=== PATIENT | female | born 1955 | race Caucasian/White ===

== ENCOUNTER → 2017-09-20 | Outpatient (CLI) | payer BC ==
[~2017-09-20] MED LIST: AGM875T PO; HYDR1TAB PO
--- NOTE | 2017-09-20 19:32 | Diagnostic Imaging Report ---
EXAMINATION: Parathyroid nuclear medicine study. INDICATION: Parathyroid adenoma. TECHNIQUE: This study was performed following administration of 20.2 mCi of 99m-technetium sestamibi. AP image of the neck was performed. Sagittal, coronal, and axial reconstructed images were also performed. COMPARISON: There are no prior studies available for comparison. FINDINGS: On the 20-minute exam, there is uptake within the parotid and submandibular glands symmetrically and in the thyroid gland. On the delayed image, there is no persistent abnormal uptake to suggest a parathyroid adenoma. IMPRESSION: 1. There is no evidence for a parathyroid adenoma. 2. If clinical concern regarding a parathyroid adenoma persists and further imaging is desired, then MRI should be considered. Dictated by: Dictated on workstation # [id number]
== END ==
LOC: CARD 12:05
PROVIDERS: ATTEND Family Medicine
DX: E21.0 Primary hyperparathyroidism (principal)
CPT/HCPCS: 78072

== ENCOUNTER → 2017-10-20 | Outpatient (CLI) | payer BC ==
--- NOTE | 2017-10-20 11:33 | Diagnostic Imaging Report ---
PROCEDURE: MRI right upper extremity without contrast. TECHNIQUE: Multiplanar, multisequence non contrast-enhanced MRI of the upper extremity was accomplished. INDICATION: Fall 06/17/2017 with injury to the right hand. Pain at the right fifth digit, lateral side, with limited range of motion. COMPARISON: None FINDINGS: Small subcortical cystlike changes are seen in the second and third metacarpal heads, likely from degenerative change. Mild edema is seen in the fifth proximal phalangeal head and middle phalangeal base. No acute fracture is seen in the right hand. There is soft tissue edema at the ulnar aspect of the right fifth proximal interphalangeal joint, with mild associated fluid. There is a high-grade partial or full-thickness tear at the proximal attachment of the ulnar collateral ligament at this joint. The ligament is thickened, likely from chronic injury. The radial collateral ligament appears intact. The distal interphalangeal joint is unremarkable. There is minimal fluid in the flexor tendon sheath, however the flexor tendon appears intact. The extensor tendon is unremarkable. The imaged musculature is likewise unremarkable. No drainable fluid collections are seen. IMPRESSION: 1. Thickening of the ulnar collateral ligament of the right fifth finger proximal interphalangeal joint, with high-grade partial-thickness or full-thickness tear at the proximal attachment. There is mild adjacent soft tissue and bone marrow edema. No acute fracture is seen. 2. Mild flexor tenosynovitis in the right fifth finger. 3. Mild degenerative changes in the right hand. Dictated by: Dictated on workstation # [id number]
== END ==
LOC: RAD 09:08
DX: S63.696A Other sprain of right little finger, initial encounter (principal); M24.241 Disorder of ligament, right hand; M65.841 Other synovitis and tenosynovitis, right hand; M19.041 Primary osteoarthritis, right hand
CPT/HCPCS: 73218

== ENCOUNTER → 2017-11-04 | Outpatient (CLI) | payer BC ==
--- NOTE | 2017-11-04 11:38 | Diagnostic Imaging Report ---
Indication: Evaluate for osteoporosis. Procedure: Bone mineral density of the lumbar spine and both hips was performed. Findings: The bone mineral density of the lumbar spine at L2-L4 is 0.962 with a T score of -2.0. The bone mineral density of the left femoral neck is 0.800 with T score -1.7. Bone mineral density of the right femoral neck is 0.758 with T score of -2.0. Impression: Findings consistent with osteopenia of the lumbar spine and bilateral femoral necks. Dictated by: Dictated on workstation # [id number]
== END ==
LOC: RAD 10:04
PROVIDERS: ATTEND Family Medicine
DX: M81.0 Age-related osteoporosis without current pathological fracture (principal); M85.88 Other specified disorders of bone density and structure, other site
CPT/HCPCS: 77080

== ENCOUNTER 2018-05-10 10:09 | Outpatient (RCR) | payer BC ==
[2018-06-02] MEDS ORDERED: LEVO50TA6 PO (10:06)
[2018-06-06] MEDS ORDERED: ACHD5005 PO (09:14)
[2018-06-06] MEDS ORDERED: CEPH500C PO (09:14)
== END 2018-08-08 | disposition home or self-care (01) ==
LOC: CARD 10:09
PROVIDERS: ATTEND Family Medicine
DX: R00.2 Palpitations (principal)
CPT/HCPCS: 93225; 93226

== ENCOUNTER → 2018-05-31 | Outpatient (CLI) | payer BC ==
[~2018-05-31] MED LIST changes: +ACHD5005 PO; +CEPH500C PO; +LEVO50TA6 PO
[2018-05-31 14:17] LABS: BASOPHILS % (AUTO) 1 % (0-10); EOSINOPHILS # (AUTO) 0.1 10^3/uL (0.0-0.3); EOSINOPHILS % (AUTO) 1 % (0-10); HEMATOCRIT 41 % (35-52); HEMOGLOBIN 13.7 G/DL (11.5-16.0); LYMPHOCYTES # (AUTO) 1.9 X 10^3 (1.0-4.0); LYMPHOCYTES % (AUTO) 32 % (12-44); MEAN CORPUSCULAR HEMOGLOBIN 31 PG (25-34); MEAN CORPUSCULAR HGB CONC 34 G/DL (32-36); MEAN CORPUSCULAR VOLUME 92 FL (80-99); MEAN PLATELET VOLUME 9.5 FL (7.4-10.4); MONOCYTES # (AUTO) 0.4 X 10^3 (0.0-1.0); MONOCYTES % (AUTO) 7 % (0-12); NEUTROPHILS # (AUTO) 3.5 X 10^3 (1.8-7.8); NEUTROPHILS % (AUTO) 59 % (42-75); PLATELET COUNT 285 10^3/uL (130-400); RED BLOOD COUNT 4.46 10^6/uL (4.35-5.85); RED CELL DISTRIBUTION WIDTH 13.4 % (10.0-14.5)
[2018-05-31 14:35] LABS: ALANINE AMINOTRANSFERASE 19 U/L (0-55); ALBUMIN 4.6 GM/DL (3.2-4.5); ALKALINE PHOSPHATASE 64 U/L (40-136); BILIRUBIN,TOTAL 1.3 MG/DL (0.1-1.0); BUN/CREATININE RATIO 22; CALCIUM 9.6 MG/DL (8.5-10.1); CARBON DIOXIDE 23 MMOL/L (21-32); CHLORIDE 104 MMOL/L (98-107); CREATININE SERUM 0.89 MG/DL (0.60-1.30); GFR ESTIMATED > 60; GLUCOSE 96 MG/DL (70-105); MAGNESIUM 2.2 MG/DL (1.8-2.4); POTASSIUM 4.2 MMOL/L (3.6-5.0); SODIUM 140 MMOL/L (135-145); TOTAL PROTEIN 7.5 GM/DL (6.4-8.2)
== END ==
LOC: LAB 14:00
PROVIDERS: ATTEND Family Medicine
DX: Z01.812 Encounter for preprocedural laboratory examination (principal); R00.2 Palpitations; E55.9 Vitamin D deficiency, unspecified; E83.42 Hypomagnesemia; E83.52 Hypercalcemia
CPT/HCPCS: 36415; 80053; 82306; 83735; 85025

== ENCOUNTER 2018-06-02 09:51 | Outpatient (CLI) | payer BC ==
[~2018-06-02] VITALS: Ht 162.6 cm; Wt 68.9 kg
[~2018-06-02 09:51] MED LIST changes: -ACHD5005 PO; -CEPH500C PO; -LEVO50TA6 PO
[2018-06-02] MEDS ORDERED: LEVO50TA6 PO (10:06)
[2018-06-02 10:25] VITALS: BP 126/79
[2018-06-06] MEDS ORDERED: ACHD5005 PO (09:14)
[2018-06-06] MEDS ORDERED: CEPH500C PO (09:14)
== END 2018-06-02 10:15 | disposition home or self-care (01) ==
LOC: PREOP 09:51
PROVIDERS: ATTEND Podiatrist Foot & Ankle Surgery
DX: Z01.818 Encounter for other preprocedural examination (principal)
CPT/HCPCS: 87081

== ENCOUNTER 2018-06-06 06:15 | Day surgery (SDC) | payer BC ==
[~2018-06-06] VITALS: Ht 162.6 cm; Wt 68.9 kg
[~2018-06-06 06:15] MED LIST changes: +LEVO50TA6 PO
[2018-06-06 06:30] VITALS: BP 119/84
[2018-06-06] MEDS ORDERED: NS (IVPB) 50 ML ONE (06:34)
[2018-06-06] MEDS ORDERED: ceFAZolin 1,000 MG/10 ML (ANCEF) VIAL ONE (06:34)
[2018-06-06] MEDS ORDERED: ceFAZolin INJECTION 1,000 MG in NS (IVPB) 50 ML IV ONE (06:45)
[2018-06-06] MEDS: LACTATED RINGERS 1,000 ML IV PRN ×2 (06:53→08:25)
[2018-06-06] MEDS ORDERED: fentaNYL INJECTION 100 MCG/2 ML AMP ONE (06:58)
[2018-06-06] MEDS ORDERED: MIDAZOLAM 2 MG/2 ML (VERSED) VIAL ONE (06:59)
--- OUTSIDE RECORDS SUMMARY | 2018-06-06 07:18 | XMS REPORT | Continuity of Care Document ---
Author Author [facility] Organization [facility] Address Unknown Phone Unavailable Allergies Active Description Code Type Severity Reaction Onset Reported/Identified Relationship to Patient Clinical Status Yes NKDA NKDA Mild N/ A 04/04/2009 Yes Sulfa (Sulfonamide Antibiotics) [id number] Drug Allergy Mild N/A 2008 Medications There is no data. Problems Date Dx Coded Attending Type Code Diagnosis Diagnosed By 08/24/2014 STEVE MONROY DO Ot V76.12 12/28/2015 STEVE MONROY DO Ot Z12.31 ENCNTR SCREEN MAMMOGRAM FOR MALIGNANT NE 01/16/2016 STEVE MONROY DO Ot Z12.31 ENCNTR SCREEN MAMMOGRAM FOR MALIGNANT NE 04/07/2016 Ot 611.79 SYMPTOMS IN BREAST NEC 04/07/2016 STEVE MONROY DO Ot V76.12 OTH SCREEN MAMMO-MALIGN NEOPLASM OF MARION 04/07/2016 Ot 611.79 SYMPTOMS IN BREAST NEC 04/07/2016 STEVE MONROY DO Ot V76.12 OTH SCREEN MAMMO-MALIGN NEOPLASM OF MARION 01/01/2017 STEVE MONROY DO Ot V76.12 OTH SCREEN MAMMO-MALIGN NEOPLASM OF MARION 09/17/2017 STEVE MONROY DO Ot Z12.31 ENCNTR SCREEN MAMMOGRAM FOR MALIGNANT NE 09/21/2017 STEVE MONROY DO Ot E21.0 PRIMARY HYPERPARATHYROIDISM 10/08/2017 STEVE MONROY DO Ot E21.0 PRIMARY HYPERPARATHYROIDISM 10/19/2017 STEVE MONROY DO Ot Z12.31 ENCNTR SCREEN MAMMOGRAM FOR MALIGNANT NE 10/19/2017 STEVE MONROY DO Ot E21.0 PRIMARY HYPERPARATHYROIDISM 10/21/2017 OTHER, UNLISTED Ot M19.041 PRIMARY OSTEOARTHRITIS, RIGHT HAND 10/21/2017 OTHER, UNLISTED Ot M24.241 DISORDER OF LIGAMENT, RIGHT HAND 10/21/2017 OTHER, UNLISTED Ot M65.841 OTHER SYNOVITIS AND TENOSYNOVITIS, RIGHT 10/21/2017 OTHER, UNLISTED Ot S63.696A OTHER SPRAIN OF RIGHT LITTLE FINGER, INI 11/03/2017 STEVE MONROY DO Ot V76.12 OTH SCREEN MAMMO-MALIGN NEOPLASM OF [place] 11/04/2017 STEVE MONROY DO Ot Z12.31 ENCNTR SCREEN MAMMOGRAM FOR MALIGNANT NE 11/04/2017 STEVE MONROY DO Ot E21.0 PRIMARY HYPERPARATHYROIDISM 11/05/2017 PORFIRIO LOZOYA STEVE Tung Ot M81.0 AGE-RELATED OSTEOPOROSIS W/O CURRENT PAT 11/05/2017 STEVE MONROY DO Ot M85.88 OTH DISRD OF BONE DENSITY AND STRUCTURE, 11/05/2017 OTHER, UNLISTED Ot M19.041 PRIMARY OSTEOARTHRITIS, RIGHT HAND 11/05/2017 OTHER, UNLISTED Ot M24.241 DISORDER OF LIGAMENT, RIGHT HAND 11/05/2017 OTHER, UNLISTED Ot M65.841 OTHER SYNOVITIS AND TENOSYNOVITIS, RIGHT 11/05/2017 OTHER, UNLISTED Ot S63.696A OTHER SPRAIN OF RIGHT LITTLE FINGER, INI 11/17/2017 STEVE MONROY DO Ot M81.0 AGE-RELATED OSTEOPOROSIS W/O CURRENT PAT 11/17/2017 PORFIRIO LOZOYA STEVE Tung Ot M85.88 OTH DISRD OF BONE DENSITY AND STRUCTURE, 05/31/2018 PORFIRIO LOZOYA STEVE Ruby Ot Z12.31 ENCNTR SCREEN MAMMOGRAM FOR MALIGNANT NE 05/31/2018 PORFIRIO LOZOYA STEVE Tung Ot E21.0 PRIMARY HYPERPARATHYROIDISM 05/31/2018 PORFIRIO LOZOYA STEVE S Ot M81.0 AGE-RELATED OSTEOPOROSIS W/O CURRENT PAT 05/31/2018 PORFIRIO LOZOYA STEVE S Ot M85.88 OTH DISRD OF BONE DENSITY AND STRUCTURE, 05/31/2018 PORFIRIO LOZOYA STEVE Tung Ot R00.2 PALPITATIONS 06/01/2018 PORFIRIO LOZOYA STEVE Tung Ot E55.9 VITAMIN D DEFICIENCY, UNSPECIFIED 06/01/2018 STEVE MONROY DO Ot E83.42 HYPOMAGNESEMIA 06/01/2018 STEVE MONROY DO Ot E83.52 HYPERCALCEMIA 06/01/2018 STEVE MONROY DO Ot R00.2 PALPITATIONS 06/01/2018 STEVE MONROY DO Ot Z01.812 ENCOUNTER FOR PREPROCEDURAL LABORATORY E Procedures There is no data. Results Test Result Range Complete blood count (CBC) with automated white blood cell (WBC) differential - 05/31/18 14:05 Blood leukocytes automated count (number/volume) 6.0 10*3/uL 4.3-11.0 Blood erythrocytes automated count (number/volume) 4.46 10*6/uL 4.35-5.85 Venous blood hemoglobin measurement (mass/volume) 13.7 g/dL 11.5-16.0 Blood hematocrit (volume fraction) 41 % 35-52 Automated erythrocyte mean corpuscular volume 92 [foz_us] 80-99 Automated erythrocyte mean corpuscular hemoglobin (mass per erythrocyte) 31 pg 25-34 Automated erythrocyte mean corpuscular hemoglobin concentration measurement ( mass/volume) 34 g/dL 32-36 Automated erythrocyte distribution width ratio 13.4 % 10.0-14.5 Automated blood platelet count (count/volume) 285 10*3/uL 130-400 Automated blood platelet mean volume measurement 9.5 [foz_us] 7.4-10.4 Automated blood neutrophils/100 leukocytes 59 % 42-75 Automated blood lymphocytes/100 leukocytes 32 % 12-44 Blood monocytes/100 leukocytes 7 % 0-12 Automated blood eosinophils/100 leukocytes 1 % 0-10 Automated blood basophils/100 leukocytes 1 % 0-10 Blood neutrophils automated count (number/volume) 3.5 10*3 1.8-7.8 Blood lymphocytes automated count (number/volume) 1.9 10*3 1.0-4.0 Blood monocytes automated count (number/volume) 0.4 10*3 0.0-1.0 Automated eosinophil count 0.1 10*3/uL 0.0-0.3 Automated blood basophil count (count/volume) 0.0 10*3/uL 0.0-0.1 Comprehensive metabolic panel - 05/31/18 14:05 Serum or plasma sodium measurement (moles/volume) 140 mmol/L 135-145 Serum or plasma potassium measurement (moles/volume) 4.2 mmol/L 3.6-5.0 Serum or plasma chloride measurement (moles/volume) 104 mmol/L 98-107 Carbon dioxide 23 mmol/L 21-32 Serum or plasma anion gap determination (moles/volume) 13 mmol/L 5-14 Serum or plasma urea nitrogen measurement (mass/volume) 20 mg/dL 7-18 Serum or plasma creatinine measurement (mass/volume) 0.89 mg/dL 0.60-1.30 Serum or plasma urea nitrogen/creatinine mass ratio 22 NRG Serum or plasma creatinine measurement with calculation of estimated glomerular filtration rate > NRG Serum or plasma glucose measurement (mass/volume) 96 mg/dL 70-105 Serum or plasma calcium measurement (mass/volume) 9.6 mg/dL 8.5-10.1 Serum or plasma total bilirubin measurement (mass/volume) 1.3 mg/dL 0.1-1.0 Serum or plasma alkaline phosphatase measurement (enzymatic activity/volume) 64 U/L 40-136 Serum or plasma aspartate aminotransferase measurement (enzymatic activity/ volume) 25 U/L 5-34 Serum or plasma alanine aminotransferase measurement (enzymatic activity/volume ) 19 U/L 0-55 Serum or plasma protein measurement (mass/volume) 7.5 g/dL 6.4-8.2 Serum or plasma albumin measurement (mass/volume) 4.6 g/dL 3.2-4.5 Magnesium - 05/31/18 14:05 Magnesium 2.2 mg/dL 1.8-2.4 VITAMIN D 25-HYDROXY - 05/31/18 14:05 VITAMIN D 25-HYDROXY (TOTAL) 52.0 % 30.0-100.0 Methicillin resistant Staphylococcus aureus (MRSA) screening culture - 10:10 Methicillin resistant Staphylococcus aureus (MRSA) screening culture NEG NRG Encounters ACCT No. Visit Date/Time Discharge Status Pt. Type Provider Facility Loc./Unit Complaint [id number] 06/02/2018 09:51:00 06/02/2018 10:15:00 DIS Outpatient NUZHAT FORDE DPM [facility] PREOP HALLUX RIGIDUS RIGHT [id number] 05/31/2018 14:00:00 05/31/2018 23:59:59 CLS Outpatient ORENDER DO, STEVE S [facility] LAB PREOP LAB, PALPITATIONS [id number] 05/20/2018 13:38:00 05/20/2018 23:59:59 CLS Preadmit ORENDER DO, STEVE S [facility] CARD PALPITATIONS, TACHYCARDIA [id number] 05/10/2018 10:09:00 05/10/2018 23:59:59 CLS Outpatient ORENDER DO, STEVE S [facility] CARD PALPITATIONS [id number] 11/04/2017 10:04:00 11/04/2017 23:59:59 CLS Outpatient ORENDER DO, STEVE S [facility] RAD M85.89 OTHER SPECIFIED DISORDERS OF BONE DENSITY S [id number] 10/20/2017 09:08:00 10/20/2017 23:59:59 CLS Outpatient OTHER, UNLISTED [facility] RAD RT HAND PAIN [id number] 09/20/2017 12:05:00 09/20/2017 23:59:59 CLS Outpatient ORENDER DO, STEVE S [facility] CARD E21.0 [id number] 12/26/2015 10:30:00 12/26/2015 23:59:59 CLS Outpatient TWILANDER DO, STEVE S [facility] RAD SCREENING [id number] 08/10/2014 10:50:00 08/10/2014 23:59:59 CLS Outpatient ORENDER DO, STEVE S [facility] RAD SCREENING [id number] 02/21/2013 06:08:00 02/21/2013 09:59:00 DIS Emergency [id number] 06/06/2018 06:15:00 ACT Outpatient EULA DPM, NUZHAT Q [facility] SDC HALLUX RIGIDUS RIGHT [id number] 01/14/2011 08:13:00 Document Registration
--- OUTSIDE RECORDS SUMMARY | 2018-06-06 07:18 | XMS REPORT | Clinical Summary ---
Author Author [facility] Organization [facility] Address Unknown Phone Unavailable Care Team Providers Care Valve Lapper Name Role Phone Linette Malagon MD PCP Source Comments Some departments are not documenting in the electronic medical record. If you do not see the information that you expected, contact Release of Information in the Health Information Management department at [phone] for further assistance in locating additional records.[facility] Allergies Active Allergy Reactions Severity Noted Date Comments Sulfa (Sulfonamide ITCHING, REDNESS Medium 11/09/2017 Antibiotics) Current Medications Prescription Sig. Disp. Refills Start End Date Status Date levothyroxine (SYNTHROID) Take 1 tablet by mouth 10/06/19 Active 50 mcg tablet daily. 18 cholecalciferol (VITAMIN Take 2,000 Units by mouth Active D-3) 1,000 units tablet daily. vitamins, B complex tab Take 1 tablet by mouth Active daily. Magnesium 250 mg tab Take 1 tablet by mouth Active daily. Ginkgo Biloba 500 mg cap Take 1 capsule by mouth Active daily. Flaxseed Oil 1,000 mg cap Take 1 capsule by mouth Active daily. oxyCODONE (ROXICODONE, Take 2 tablets by mouth 40 tablet 0 11/27/19 Active OXY-IR) 5 mg tablet every 4 hours as needed 18 Earliest Fill Date: 11/26/17 calcium carbonate Take 1 tablet by mouth 90 tablet 3 11/27/19 Active (OS-WOJCIECH) 1250 mg tablet three times daily. 18 senna (SENOKOT) 8.6 mg Take 1 tablet by mouth 90 tablet 3 11/27/19 Active tablet twice daily. 18 acetaminophen (TYLENOL) Take 2 tablets by mouth 0 11/27/19 Active 325 mg tablet every 6 hours as needed 18 for Pain. Active Problems No known active problems Resolved Problems Problem Noted Date Resolved Date Hyperparathyroidism (HCC) 11/10/2017 12/18/2017 Overview: Added automatically from request for surgery [id number] Family History Medical History Relation Name Comments High Cholesterol Brother Depression Father Stroke Father Thyroid Disease Father Arthritis-osteo Maternal Aunt Hypertension Maternal Aunt Thyroid Disease Maternal Aunt Cancer-Prostate Maternal Grandfather Arthritis-rheumatoid Maternal Uncle Arthritis-osteo Mother High Cholesterol Mother Hypertension Mother Cancer-Breast Paternal Aunt Depression Paternal Aunt Hypertension Paternal Aunt Heart Disease Paternal Grandfather Depression Paternal Grandmother Depression Sister Relation Name Status Comments Brother Alive Father Maternal Aunt Maternal Grandfather Maternal Uncle Mother Paternal Aunt Paternal Aunt Alive Paternal Grandfather Paternal Grandmother Sister Alive Social History Tobacco Use Types Packs/Day Years Used Date Never Smoker Smokeless Tobacco: Never Used Alcohol Use Drinks/Week oz/Week Comments No Sex Assigned at Date Recorded Not on file Last Filed Vital Signs Vital Sign Reading Time Taken Blood Pressure 122/72 12/07/2017 11:22 AM CDT Pulse 70 12/07/2017 11:22 AM CDT Temperature 36.8 C (98.2 F) 12/07/2017 11:22 AM CDT Respiratory Rate 16 12/07/2017 11:22 AM CDT Oxygen Saturation 98% 12/07/2017 11:22 AM CDT Inhaled Oxygen - - Concentration Weight 69.1 kg (152 lb 6.4 oz) 12/07/2017 11:22 AM CDT Height 161.2 cm (5' 3.47") 12/07/2017 11:22 AM CDT Body Mass Index 26.6 12/07/2017 11:22 AM CDT Plan of Treatment Health Maintenance Due Date Last Done Comments HEPATITIS C SCREENING 1954 PHYSICAL (COMPREHENSIVE) 1961 EXAM PERTUSSIS VACCINE 1965 HIV SCREENING 1969 TETANUS VACCINE 1971 CERVICAL CANCER SCREENING 1984 BREAST CANCER SCREENING 1994 COLORECTAL CANCER 2004 SCREENING SHINGLES RECOMBINANT 2004 VACCINE (1 of 2) INFLUENZA VACCINE 02/23/2018 Results Not on filefrom Last 3 Months
--- NOTE | 2018-06-06 07:25 | Progress Note-Pre Operative ---
Pre-Operative Progress Note H&P Reviewed The H&P was reviewed, patient examined and no changes noted. Date Seen by Provider: Jun 06, 2018 Time Seen by Provider: 07:25 Date H&P Reviewed: Jun 06, 2018 Time H&P Reviewed: 07:25 Pre-Operative Diagnosis: Hallux Rigidus right NUZHAT FORDE DPM Jun 06, 2018 7:25 am
[2018-06-06] MEDS ORDERED: BUPIVACAINE 0.5% 30 ML (SENSORCAINE) VIAL ONE (07:27)
[2018-06-06] MEDS ORDERED: DEXAMETHASONE 10 MG/ML (DECADRON) 1 ML VIAL ONE (08:43)
[2018-06-06] MEDS ORDERED: LACTATED RINGERS 1,000 ML IV ONE (08:44)
[2018-06-06] MEDS ORDERED: ONDANSETRON 4 MG/2 ML (SDV) Z0FRAN ONE (08:44)
[2018-06-06] MEDS ORDERED: SEVOFLURANE (ULTANE) 15 ML INHAL SOLN ONE ×5 (08:44→08:45)
[2018-06-06] MEDS ORDERED: LIDOCAINE PF 2% 5 ML (XYLOCAINE) VIAL ONE (08:44)
[2018-06-06] MEDS ORDERED: proPOfol 200 MG/20 ML (DIPRIVAN) VIAL IV ONE (08:44)
[2018-06-06] MEDS ORDERED: KETOROLAC 30 MG/ML VIAL IVP ONE (09:00)
[2018-06-06] MEDS ORDERED: morphine INJ 10 MG/ML 1ML (SYR OR VIAL) IVP ONE (09:00)
[2018-06-06] MEDS ORDERED: ONDANSETRON 4 MG/2 ML (SDV) Z0FRAN IVP PRN (09:00)
[2018-06-06] MEDS ORDERED: MEPERIDINE (DEMEROL) INJ 50 MG/ML IVP ONE (09:00)
[2018-06-06] MEDS ORDERED: fentaNYL INJECTION 100 MCG/2 ML AMP IVP ONE (09:00)
[2018-06-06] MEDS ORDERED: LACTATED RINGERS 1,000 ML IV SCH (09:12)
--- NOTE | 2018-06-06 09:12 | Progress Note-Post Operative ---
Post-Operative Progess Note Surgeon (s)/Ready Mix Truck Driver (s) Surgeon NUZHAT FORDE DPM Ready Mix Truck Driver: none Pre-Operative Diagnosis Hallux Rigidus right Post-Operative Diagnosis same Procedure & Operative Findings Date of Procedure 06/06/18 Procedure Performed/Findings Cheilectomy with Cartiva implant, right foot Anesthesia Type General Estimated Blood Loss Estimated blood loss (mL): minimal Specimens/Packing Specimens Removed none NUZHAT FORDE DPM Jun 06, 2018 9:12 am
[2018-06-06] MEDS ORDERED: ACHD5005 PO (09:14)
[2018-06-06] MEDS ORDERED: CEPH500C PO (09:14)
[2018-06-06] MEDS ORDERED: HYDROcodone/APAP 5 MG/325 MG (LORTAB) TAB PO PRN (09:15)
--- NOTE | 2018-06-06 09:50 | Diagnostic Imaging Report ---
INDICATION: Right foot pain. Two views of the right foot show no fracture or dislocation. IMPRESSION: Negative right foot. Dictated by: Dictated on workstation # [id number]
[2018-06-06 09:55] VITALS: BP 134/77
[2018-06-06 10:25] VITALS: BP 134/76
--- NOTE | 2018-06-06 10:35 | Anesthesia-General Post-Op ---
General Patient Condition Mental Status/LOC: Same as Preop Cardiovascular: Satisfactory Nausea/Vomiting: Absent Respiratory: Satisfactory Pain: Controlled Complications: Absent Post Op Complications Complications None Follow Up Care/Instructions Patient Instructions None needed. Anesthesia/Patient Condition Patient Condition Patient is doing well, no complaints, stable vital signs, no apparent adverse anesthesia problems. No complications reported per nursing. GILBERTO YOON CRNA Jun 06, 2018 10:35
[2018-06-06 10:50] VITALS: BP 134/76
[2018-06-06 10:55] VITALS: BP 128/78
--- NOTE | 2018-06-06 11:44 | Physical Therapy Progress Note ---
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 Education with patient on PWB right foot. Patient ambulated to restroom PWB right foot with FWW without difficulty. No skilled PT indicated. 1 visit MUKESH BHAGAT PT Jun 06, 2018 11:44
--- NOTE | 2018-06-06 15:22 | OPERATIVE REPORT ---
DATE OF SERVICE: 06/06/2018 SURGEON: Deonna Rios DPM. PREOPERATIVE DIAGNOSIS: Hallux rigidus, right. POSTOPERATIVE DIAGNOSIS: Hallux rigidus, right. PROCEDURE: Cheilectomy with a Cartiva implant. WOUND CLASS: Clean. ANESTHESIA: General. HEMOSTASIS: Pneumatic thigh tourniquet at 250 mmHg. INDICATIONS: This is a 63-year-old female presents complaining of painful right great toe joint. Conservative therapy has met with unsatisfactory results and the patient is agreeable to surgical intervention after risks and complications were discussed at length. No guarantees were extended to the patient and she is willing to proceed. DESCRIPTION OF PROCEDURE: The patient was brought back to the operating table and placed in secure supine position. General anesthetic was then induced. An appropriate timeout was performed. A pneumatic thigh tourniquet was placed on the right lower extremity over several layers of padding. The right foot was then prepped and draped in the normal sterile manner. The right first ray was anesthetized utilizing of 10 mL of 0.5% Marcaine plain injected in a Rothman block. The right foot was then elevated and allowed to exsanguinate after which the tourniquet was inflated to 250 mmHg. Attention was then directed to the dorsal aspect of the right first metatarsophalangeal joint where a 6 cm longitudinal linear incision was created. The incision was deepened in the same plane with great care to identify and retract all vital neurovascular structures. All necessary blood vessels were cauterized as encountered. The incision was deepened down to the capsule where a longitudinal capsulotomy was performed and reflected medial and laterally exposing the hypertrophic medial, lateral and dorsal aspect of the first metatarsal and base of the proximal phalanx. Utilizing power sagittal saw and rongeur, these bony prominences were reduced significantly. The head of the first metatarsal was further contoured and smoothed with a power bur. Inspection of the first metatarsal head indicated approximately 10% of the articular cartilage remaining to the plantar medial aspect of the first metatarsal. Because of this lack of hyaline cartilage, it was then decided that a Cartiva implant would be appropriate for this particular patient. The wound was flushed with copious amounts of normal saline. A guidewire was placed through the central portion of the first metatarsal head and extended proximally. Next, an 8 mm drill was introduced over the guidewire, making a deficit for the implant to the first metatarsal head. The drill and guidewire were then removed from the first metatarsal after which the 8 mm Cartiva implant was introduced to the first metatarsal head approximately 2 mm proud in relation to the first metatarsal head surface. The wound was flushed with copious amounts of normal saline and closure was then performed in layers. Deep closure was performed with 3-0 Vicryl, superficial with 4-0 Vicryl, skin closed with 4-0 Prolene in a horizontal mattress type stitch. Excellent range of motion was appreciated at the right first metatarsophalangeal joint with minimal crepitation. Postoperative injection consisted of 10 mL of 0.5% Marcaine plain in a Rothman block as well as 10 mg dexamethasone in the first intermetatarsal space at the level of the first metatarsophalangeal joint. Postoperative dressing consisted of Betadine soaked Adaptic, sterile 4 x 4, sterile Kerlix, all secured with a Coban wrap. The patient tolerated the anesthesia and procedure well, was transported from the operating room to the recovery area with vital signs stable and vascular status intact to all digits of the right foot. The patient is to follow up in my office in 10 days' period of time or sooner if necessary. She was given a prescription for Keflex and Vicodin. Job ID: [id number] DocumentID: [id number] Dictated Date: 06/06/2018 09:38:57 Auto Motor Mechanic Date: 06/06/2018 15:21:56 Dictated By: MANDO ZAMORANO
== END 2018-06-06 11:20 | disposition home or self-care (01) ==
LOC: SDC 06:15
PROVIDERS: ATTEND Podiatrist Foot & Ankle Surgery
DX: M20.21 Hallux rigidus, right foot (principal); R00.2 Palpitations; Z79.899 Other long term (current) drug therapy
CPT/HCPCS: 73620

== ENCOUNTER → 2018-10-20 | Outpatient (CLI) | payer BC ==
[~2018-10-20] MED LIST changes: +ACHD5005 PO; +CEPH500C PO
== END ==
LOC: CARD 14:57
PROVIDERS: ATTEND Family Medicine
DX: R00.2 Palpitations (principal)
CPT/HCPCS: 93005

== ENCOUNTER → 2018-11-10 | Outpatient (CLI) | payer BC ==
[2018-11-13 15:39] VITALS: BP 161/106
--- NOTE | 2018-11-13 15:39 | Cardiology Stress Test Report ---
Stress Test Report Date of Procedure/Referring: Date of Procedure: Nov 10, 2018 PCP Mike Hoyt MD Admitting Physician Linette Malagon DO Indications: Palpitations Baseline Heart Rate: 86 Baseline Blood Pressure: Blood Pressure Systolic: 161 Blood Pressure Diastolic: 106 Baseline EKG: Baseline EKG: sinus rhythm with PVCs Summary/Conclusion: Summary: In summary, the patient started exercising with a baseline heart rate, blood pressure and EKG mentioned above Patient was able to exercise for a total of 3.22 minutes on [place] protocol, METs Maximum heart rate 134 BPM which is 85 percent of maximum predicted heart rate response. Maximum blood pressure 216/104 Stress EKG normal Recovery EKG normal Conclusion: Adequate exercise response by achieving 85 percent target of maximum predicted heart rate response with no ischemic changes. Stress test was stopped due to significantly elevated blood pressure. Metoprolol Succinate 50mg daily prescription given. Frequent PVCs seen - monomorphic. Likely requires cardiology consultation. Mike HOYT MD Nov 13, 2018 3:39 pm
== END ==
LOC: CARD 14:49
PROVIDERS: ATTEND Internal Medicine Interventional Cardiology
DX: R00.2 Palpitations (principal)

== ENCOUNTER 2018-12-30 08:41 | Outpatient (RCR) | payer BC | END 2019-03-30 | disposition home or self-care (01) | LOC: CARD 08:41 | PROVIDERS: ATTEND Internal Medicine Interventional Cardiology | DX: R00.2 Palpitations (principal); I10 Essential (primary) hypertension; E78.2 Mixed hyperlipidemia; I49.3 Ventricular premature depolarization | CPT/HCPCS: 93270; 93306 ==

== ENCOUNTER → 2019-02-03 | Outpatient (CLI) | payer BC ==
[2019-02-03 08:36] LABS: BASOPHILS % (AUTO) 1 % (0-10); EOSINOPHILS # (AUTO) 0.1 10^3/uL (0.0-0.3); EOSINOPHILS % (AUTO) 3 % (0-10); HEMATOCRIT 42 % (35-52); HEMOGLOBIN 14.1 G/DL (11.5-16.0); LYMPHOCYTES # (AUTO) 1.6 X 10^3 (1.0-4.0); LYMPHOCYTES % (AUTO) 35 % (12-44); MEAN CORPUSCULAR HEMOGLOBIN 30 PG (25-34); MEAN CORPUSCULAR HGB CONC 33 G/DL (32-36); MEAN CORPUSCULAR VOLUME 91 FL (80-99); MEAN PLATELET VOLUME 9.4 FL (7.4-10.4); MONOCYTES # (AUTO) 0.4 X 10^3 (0.0-1.0); MONOCYTES % (AUTO) 8 % (0-12); NEUTROPHILS # (AUTO) 2.5 X 10^3 (1.8-7.8); NEUTROPHILS % (AUTO) 54 % (42-75); PLATELET COUNT 307 10^3/uL (130-400); RED CELL DISTRIBUTION WIDTH 13.8 % (10.0-14.5); WHITE BLOOD COUNT 4.6 10^3/uL (4.3-11.0)
[2019-02-03 09:09] LABS: CARBON DIOXIDE 23 MMOL/L (21-32); CHLORIDE 105 MMOL/L (98-107); POTASSIUM 4.4 MMOL/L (3.6-5.0); SODIUM 141 MMOL/L (135-145)
[2019-02-03 09:10] LABS: ALANINE AMINOTRANSFERASE 18 U/L (0-55); ALBUMIN 4.6 GM/DL (3.2-4.5); ALKALINE PHOSPHATASE 63 U/L (40-136); BILIRUBIN,TOTAL 1.4 MG/DL (0.1-1.0); BUN/CREATININE RATIO 24; CALCIUM 9.7 MG/DL (8.5-10.1); CHOLESTEROL 238 MG/DL (< 200); CREATININE SERUM 1.08 MG/DL (0.60-1.30); GFR ESTIMATED 51; GLUCOSE 95 MG/DL (70-105); HDL CHOLESTEROL 55 MG/DL (40-60); TOTAL PROTEIN 7.5 GM/DL (6.4-8.2); TRIGLYCERIDES 95 MG/DL (<150); VLDL CHOLESTEROL 19 MG/DL (5-40)
== END ==
LOC: LAB 08:19
PROVIDERS: ATTEND Family Medicine
DX: E83.52 Hypercalcemia (principal); E55.9 Vitamin D deficiency, unspecified; E21.0 Primary hyperparathyroidism; E78.2 Mixed hyperlipidemia; E03.9 Hypothyroidism, unspecified; I49.9 Cardiac arrhythmia, unspecified
CPT/HCPCS: 36415; 80053; 80061; 83970; 84443; 85025

== ENCOUNTER → 2019-02-03 | Outpatient (CLI) | payer BC ==
[2019-02-03 09:00] LABS: ALANINE AMINOTRANSFERASE 18 U/L (0-55); ALBUMIN 4.6 GM/DL (3.2-4.5); ALKALINE PHOSPHATASE 63 U/L (40-136); BILIRUBIN,TOTAL 1.4 MG/DL (0.1-1.0); BUN/CREATININE RATIO 24; CALCIUM 9.7 MG/DL (8.5-10.1); CARBON DIOXIDE 23 MMOL/L (21-32); CHLORIDE 105 MMOL/L (98-107); CHOLESTEROL 238 MG/DL (< 200); CREATININE SERUM 1.08 MG/DL (0.60-1.30); GFR ESTIMATED 51; GLUCOSE 95 MG/DL (70-105); HDL CHOLESTEROL 55 MG/DL (40-60); POTASSIUM 4.4 MMOL/L (3.6-5.0); SODIUM 141 MMOL/L (135-145); TOTAL PROTEIN 7.5 GM/DL (6.4-8.2); TRIGLYCERIDES 95 MG/DL (<150); VLDL CHOLESTEROL 19 MG/DL (5-40)
== END ==
LOC: LAB 07:59
PROVIDERS: ATTEND Internal Medicine Interventional Cardiology
DX: E78.2 Mixed hyperlipidemia (principal)
CPT/HCPCS: 36415; 80053; 80061

== ENCOUNTER → 2019-02-06 | Outpatient (CLI) | payer BC ==
--- NOTE | 2019-02-06 19:45 | Diagnostic Imaging Report ---
INDICATION: Routine screening. Comparison is made with prior mammograms from 12/26/2015 and 08/10/2014. 2-D and 3-D bilateral screening mammography was performed. The current study was also evaluated with a Computer Aided Detection (CAD) system. 3-D tomosynthesis was also performed and reviewed. FINDINGS: Both breasts remain heterogeneously dense, limiting the sensitivity of mammography. The parenchymal pattern is stable. No mass or malignant-appearing microcalcifications are seen. Benign calcification on the left is noted. The axillae are unremarkable. IMPRESSION: No mammographic features suspicious for malignancy are identified. ACR BI-RADS Category 2: Benign findings. Result letter will be mailed to the patient. Note: At least 10% of breast cancer is not imaged by mammography. Dictated by: Dictated on workstation # [id number]
== END ==
LOC: RAD 10:00
PROVIDERS: ATTEND Family Medicine
DX: Z12.31 Encounter for screening mammogram for malignant neoplasm of breast (principal); E55.9 Vitamin D deficiency, unspecified; E21.0 Primary hyperparathyroidism
CPT/HCPCS: 77067

== ENCOUNTER → 2019-03-14 | Outpatient (CLI) | payer MEDICARE, OTHER ==
--- NOTE | 2019-03-14 11:50 | Diagnostic Imaging Report ---
INDICATION: Postmenopausal female. COMPARISON: 11/04/2017 FINDINGS: AP Spine L1-L4: [BMD (g/cm2): 0.969] [T-Score: -1.9] [Z-Score: -0.5] [BMD Previous: 0.962] [BMD % Change: 0.7] LT Hip Neck: [BMD (g/cm2): 0.822] [T-Score: -1.6] [Z-Score: -0.2] LT Hip Total: [BMD (g/cm2):0.924] [T-Score:-0.7] [Z-Score: 0.4] [BMD Previous: 0.878] [BMD % Change: 5.2] RT Hip Neck: [BMD (g/cm2):0.760] [T-Score:-2.0] [Z-Score:-0.6] RT Hip Total: [BMD (g/cm2):0.925] [T-score:-0.7] [Z-Score:0.4] [BMD Previous:0.882] [BMD % Change:4.9] *Indicates significant change from prior examination based on 95% confidence level. World Health Organization criteria for BMD interpretation classify patients as Normal (T-score at or above -1.0), Osteopenic (T-score between -1.0 and -2.5) or Osteoporotic (T-score at or below -2.5). LIMITATIONS AND MODIFICATION: None. FRACTURE RISK (FRAX SCORE): The ten year probability of (%): Major Osteoporotic Fracture: [11] Hip Fracture: [1.5] IMPRESSION: 1. Osteopenia (Low bone mass). 2. There has been an increase in BMD since prior exam, detailed above. 3. See below National Osteoporosis Foundation guidelines on when to potentially initiate pharmacologic therapy. Based on the National Osteoporosis Foundation Guidelines, pharmacologic treatment should be initiated in any of the following, unless clinical conditions suggest otherwise: * Any patient with prior fragility fracture of the hip or vertebrae. A spine fracture indicates 5X risk for subsequent spine fracture and 2X risk for subsequent hip fracture. * Osteoporosis (T-score <-2.5). * Postmenopausal women and men age 50 and older with low bone mass/osteopenia (T-score between -1.0 and -2.5) by DXA and 10-year major osteoporotic fracture greater than 20% or a 10-year probability of hip fracture greater than 3%. These fracture risks are supplied above in the FRAX score, if applicable. * Clinician judgement and/or patient preferences may indicate treatment for people with 10-year fracture probabilities above or below these levels. Dictated by: Dictated on workstation # [id number]
== END ==
LOC: RAD 09:46
PROVIDERS: ATTEND Family Medicine
DX: Z12.31 Encounter for screening mammogram for malignant neoplasm of breast (principal); M85.89 Other specified disorders of bone density and structure, multiple sites; E55.9 Vitamin D deficiency, unspecified; E21.0 Primary hyperparathyroidism; Z78.0 Asymptomatic menopausal state
CPT/HCPCS: 77080

== ENCOUNTER → 2019-08-04 | Outpatient (CLI) | payer MEDICARE, OTHER ==
--- NOTE | 2019-08-04 12:48 | Diagnostic Imaging Report ---
EXAMINATION: Left hip radiographs, 2 views. COMPARISON: None. HISTORY: 64-year-old female, left hip pain. FINDINGS: The left hip is not dislocated. There is no pronounced joint space loss of the left hip, osteophyte formation, or subchondral cystic change. There is no identified acute fracture. There is no radiographically apparent bone lesion. IMPRESSION: 1. Unremarkable radiographic assessment of the left hip. Dictated by: Dictated on workstation # [id number]
--- NOTE | 2019-08-04 12:48 | Diagnostic Imaging Report ---
EXAMINATION: Lumbar spine radiographs, 3 views. COMPARISON: None. HISTORY: 64-year-old female, low back pain. Sciatica and left lower extremity radiculopathy. FINDINGS: There are 5 lumbar-type vertebral bodies. There is no identified compression deformity. The alignment of the lumbar spine is grossly unremarkable. There are bilateral facet degenerative changes at L5-S1. There is very mild disc height loss at L2-L3, L3-L4, and L4-L5. There are minimal endplate degenerative changes of the thoracolumbar spine. The sacroiliac joints are grossly unremarkable in appearance. IMPRESSION: 1. Mild multilevel disc degenerative changes of the lumbar spine. 2. Moderate bilateral facet degenerative changes at L5-S1. Dictated by: Dictated on workstation # [id number]
--- NOTE | 2019-08-04 12:49 | Diagnostic Imaging Report ---
INDICATION: Pain, sciatica. COMPARISON: Imaging from the same date. TECHNIQUE: Three radiographs of the sacroiliac joints dated August 04, 2019. FINDINGS: No acute fracture or dislocation. No destructive osseous process. The bilateral sacroiliac joints appear symmetric and intact. No significant erosive changes. No suspicious radiopaque foreign body. IMPRESSION: Unremarkable examination. Dictated by: Dictated on workstation # [id number]
== END ==
LOC: RAD 11:56
PROVIDERS: ATTEND Nurse Practitioner Family
DX: M47.817 Spondylosis without myelopathy or radiculopathy, lumbosacral region (principal)
CPT/HCPCS: 72100; 72202; 73502

== ENCOUNTER 2019-09-22 10:30 | Outpatient (RCR) | payer MEDICARE, OTHER | END 2019-11-22 | disposition home or self-care (01) | PROVIDERS: ATTEND Family Medicine | DX: M51.36 Other intervertebral disc degeneration, lumbar region (principal); M54.16 Radiculopathy, lumbar region ==

== ENCOUNTER → 2019-12-05 | Outpatient (CLI) | payer MEDICARE, OTHER ==
--- NOTE | 2019-12-05 08:41 | Diagnostic Imaging Report ---
PROCEDURE: MRI lumbar spine. TECHNIQUE: Multiplanar, multisequence MRI of the lumbar spine was performed without contrast. INDICATION: Left hip pain. Left leg pain. Numbness of the toes. COMPARISON: None. FINDINGS: For the purposes of this exam, the last well-formed disc space is denoted the L5-S1 level. Static alignment is maintained. There is no significant jensen or retrolisthesis. There is no evidence of jumped facets. The vertebral body heights are maintained. There is no acute fracture. Marrow signal is normal throughout. Intervertebral disc heights are also fairly well-maintained. The visualized portions of the distal cord are unremarkable. Conus terminates at approximately the L1-L2 level. No abnormal intrathecal filling defects are seen. Pre and paravertebral soft tissue structures are unremarkable. Axial images demonstrate the following: L1-L2 and L2-L3: There is no large disc bulge or focal protrusion. There is no significant spinal canal or neuroforaminal stenosis. L3-L4: There is minimal broad-based posterior disc bulge and mild bilateral ligamentum flavum laxity and facet arthropathy. As a result, there is minimal narrowing of the spinal canal. Neuroforamen are unremarkable. L4-L5: There is slight broad-based posterior disc bulge, bilateral ligamentum flavum laxity, and facet arthropathy. As a result, there is minimal narrowing of the spinal canal. Neuroforamen are unremarkable. L5-S1: There is a T1 dark cystic-appearing structure within the left lateral extradural spinal canal anterior to the left facet. Imaging appearance is suggestive of a synovial cyst. It measures 7 x 8 mm. There is also bilateral facet arthropathy and mild broad-based posterior disc bulge. As a result, there is mild asymmetric narrowing of the spinal canal and mild narrowing of bilateral neuroforamen. There is also probable mass effect on the exiting S1 nerve root secondary to the synovial cyst. IMPRESSION: 1. Multilevel degenerative changes of the lumbar spine, greatest at L5-S1 where there appears to be a left-sided synovial cyst resulting in mass effect on the exiting left S1 nerve root. 2. No acute fracture or dislocation. Dictated by: Dictated on workstation # [id number]
== END ==
LOC: RAD 07:35
PROVIDERS: ATTEND Family Medicine
DX: M47.27 Other spondylosis with radiculopathy, lumbosacral region (principal)
CPT/HCPCS: 72148